=== PATIENT | female | born 1990 | race Hispanic/Latino ===

== ENCOUNTER 2020-04-01 15:12 | Outpatient (CLI) | payer MEDICAID, SELFPAY ==
--- NOTE | ~2020-04-01 | US_ITS ---
EXAMINATION: US OB <= 14 weeks fetus DATE: 04/01/2020 16:00 INDICATION: Gestational dating. TECHNIQUE: Real-time transabdominal and transvaginal obstetric ultrasound. FINDINGS: No prior studies for comparison. The uterus measures 11 x 6 x 6.7 cm. There is an intrauterine gestational sac, with pole identi fied. The crown rump length measures .55 cm, which correlates with a estimated gestational age of 6 weeks 2 days. heart tones are identified measuring 125. Right ovary not visualized. Left ovar y is normal measuring 3.4 x 1.9 x 3.5 cm. IMPRESSION: 1. SL IUP with an EGA of 6 weeks, 2 days (EDC by current ultrasound of 11/23/2020). Reviewed, dictated and finalized at location A. IMPRESSION: 1. SL IUP with an EGA of 6 weeks, 2 days (EDC by current ultrasound of ).
== END 2020-04-01 15:13 | disposition home or self-care (01) ==
LOC: ANHIMG 15:22
PROVIDERS: PCP Obstetrics & Gynecology; Visit Provider Obstetrics & Gynecology
DX: Z34.91 Encounter for supervision of normal pregnancy, unspecified, first trimester (principal); Z3A.01 Less than 8 weeks gestation of pregnancy
CPT/HCPCS: 76801

== ENCOUNTER 2020-05-14 13:38 | Outpatient (CLI) | payer MEDICAID, SELFPAY ==
--- NOTE | ~2020-05-14 | US_ITS ---
EXAMINATION: US OB <= 14 weeks fetus DATE: 05/14/2020 14:38 INDICATION: Routine care. TECHNIQUE: Real-time ultrasound of the pelvis was performed. COMPARISON: Ultrasound 04/01/2020 FINDINGS: There is a single living fetus in variable presentation. The placenta is anterior. heart rate is 170 beats per minute (bpm). The amniotic fluid volume is subjectively normal. The following biometric data were obtained: Biparietal diameter (BPD): 2.2 cm; head circumference (HC): 8.4 cm; abdominal circumference (AC): 7.2 cm; femur length (FL): 1.2 cm. These measurements are concordant. Estimated weight is 79 g +/- 12 g, which correlates with 94th percentile when 11/22/20 is used a s estimated date of delivery. As single measurements, these parameters are each equal to the following estimated gestational ages w ith ranges of +/- 2 standard deviations: BPD: 13 weeks 5 days (12 weeks 3 days - 14 weeks 6 days). HC: 13 weeks 5 days (12 weeks 4 days - 14 weeks 6 days). AC: 13 weeks 5 days (12 weeks 0 days - 15 weeks 3 days). FL: 13 weeks 3 days (12 weeks 1 days - 14 weeks 6 days). estimated gestational age based solely on measurements from this exam is 13 weeks 5 days +/- 1 weeks 0 days. IMPRESSION: 1. Single living fetus in variable presentation. 2. Large for gestational age. Estimated weight is 79 g +/- 12 g, which correlates with 94th per centile when 11/22/20 is used as estimated date of delivery. Note that the estimated date of delivery from the crown-rump length from the first ultrasound was 11/23/2020. Reviewed, dictated and finalized at location B. GE WORKER IMPRESSION: 1. Single living fetus in variable presentation. 2. Large for gestational age. Estimated weight is 79 g +/- 12 g, which co rrelates with 94th percentile when 11/22/20 is used as estimated date of deliver y. Note that the estimated date of delivery from the crown-rump length from the first ultrasound was 11/23/2020.
== END 2020-05-14 13:39 | disposition home or self-care (01) ==
LOC: ANHIMG 14:02
PROVIDERS: Visit Provider Obstetrics & Gynecology
DX: Z34.91 Encounter for supervision of normal pregnancy, unspecified, first trimester (principal); Z3A.13 13 weeks gestation of pregnancy
CPT/HCPCS: 76801

== ENCOUNTER 2020-07-19 11:02 | Outpatient (CLI) | payer OTHER, SELFPAY ==
--- NOTE | ~2020-07-19 | US_ITS ---
EXAMINATION: US OB /maternal detail DATE: 07/19/2020 12:23 INDICATION: Assess anatomy during second trimester of TECHNIQUE: Multiple obstetric sonographic images performed. COMPARISON: 05/14/2020 and 04/01/2020 FINDINGS: There is a single living fetus in vertex presentation. The placenta is anterior and not low-lying wi th caudal margin 6.0 cm from the internal cervical os. Amniotic fluid volume is subjectively normal. heart rate of 141 beats per minute. The following anatomy was identified as normal: Ventricles, choroid plexus, falx and cava septum pellucidum Cerebellum and cisterna magna Nuchal fold Upper lip Spine Diaphragm Stomach Kidneys Bladder 3 vessel cord and cord insertion Bilateral upper and lower extremities including hands and feet Chamber heart view (the outflow tract views are nondiagnostic) The following biometric data were obtained: BPD: 5.5 cm -> 22 weeks 5 days Head circumference: 20.8 cm -> 22 weeks 6 days Abdominal circumference: 18.1 cm -> 23 weeks 0 days Femur length: 4.1 cm -> 23 weeks 2 days These measurements are concordant. Head circumference to abdominal circumference ratio: 1.15 (normal range 1.05-1.21). Estimated weight: 558 g (+/-) 84 g. or 1 lbs. 4 oz. (+/-) 3 oz. IMPRESSION: 1. Single living fetus with vertex presentation with heart rate of 141 bpm. 2. Estimated weight is 91st percentile by Hadlock criteria when 11/22/2020 is used as the LIBBY. Please correlate with clinical information or earlier ultrasounds for most accurate LIBBY. 3. Normal four-chamber heart view but with nondiagnostic outlet views. Otherwise normal survey. Reviewed, dictated and finalized at location A. DIPPER IMPRESSION: 1. Single living fetus with vertex presentation with heart rate of 141 b pm. 2. Estimated weight is 91st percentile by Hadlock criteria when 1 is used as the LIBBY. Please correlate with clinical information or earlier ult rasounds for most accurate LIBBY. 3. Normal four-chamber heart view but with nondiagnostic outlet views. Otherwis e normal survey.
== END 2020-07-19 11:03 | disposition home or self-care (01) ==
PROVIDERS: PCP Obstetrics & Gynecology; Visit Provider Obstetrics & Gynecology
DX: Z34.90 Encounter for supervision of normal pregnancy, unspecified, unspecified trimester (principal); Z3A.00 Weeks of gestation of pregnancy not specified
CPT/HCPCS: 76805

== ENCOUNTER 2020-08-30 09:02 | Outpatient (CLI) | payer OTHER, SELFPAY ==
--- NOTE | ~2020-08-30 | US_ITS ---
EXAMINATION: US OB follow up DATE: 08/30/2020 09:28 INDICATION: growth assessment during third trimester TECHNIQUE: Real-time ultrasound of the pelvis was performed. The interpreting radiologist was not pre sent for the study. COMPARISON: 07/19/2020 FINDINGS: There is a single living fetus in vertex presentation. The placenta is anterior. card iac activity and movement are noted. heart rate is 152 beats per minute (bpm). The amniot ic fluid index is 21.2 cm which is normal (normal range: 9.4 cm to 22.8 cm) . The following biometric data were obtained: Biparietal diameter (BPD): 7.5 cm; head circumference (HC): 2635 cm; abdominal circumference (AC): 28 .6 cm; femur length (FL): 5.4 cm. The head circumference to abdominal circumference ratio is greater than than two standard deviations below the mean. These measurements are otherwise concordant. [place] [address] g +/- 8 g, which correlates with the >97th percentile when 11/22/2020 is used as estimated date of delivery. As single measurements, these parameters are each equal to the following estimated gestational ages w ith ranges of +/- 2 standard deviations: BPD: 30 weeks 3 days +/- 3 weeks 1 days. HC: 28 weeks 6 days +/- 2 weeks 0 days. AC: 32 weeks 4 days +/- 3 weeks 0 days. FL: 28 weeks 5 days +/- 2 weeks 1 days. estimated gestational age based solely on measurements from this exam is 30 weeks 1 days +/- 2 weeks 1 days. IMPRESSION: 1. Single living fetus in vertex presentation. 2. Normal amniotic fluid index. 3[place] [address] g +/- 8 g, which correlates with the >97th percentile when 11/23/19 21 is used as estimated date of delivery. 4. Head circumference to abdominal circumference ratio greater than two standard deviations below the mean. Reviewed, dictated and finalized at location A. IMPRESSION: 1. Single living fetus in vertex presentation. 2. Normal amniotic fluid index. 3. [place] [address] g +/- 8 g, which correlates with the >97th p ercentile when 11/22/2020 is used as estimated date of delivery. 4. Head circumference to abdominal circumference ratio greater than two standar d deviations below the mean.
== END 2020-08-30 09:03 | disposition home or self-care (01) ==
LOC: ANHIMG 09:03
PROVIDERS: Visit Provider Obstetrics & Gynecology
DX: Z34.93 Encounter for supervision of normal pregnancy, unspecified, third trimester (principal); Z3A.30 30 weeks gestation of pregnancy
CPT/HCPCS: 76816

== ENCOUNTER 2020-10-06 15:16 | Outpatient (CLI) | payer OTHER, SELFPAY ==
--- NOTE | ~2020-10-06 | US_ITS ---
EXAMINATION: US OB follow up DATE: 10/06/2020 16:12 INDICATION: Large for gestational age. TECHNIQUE: Real-time ultrasound of the pelvis was performed. COMPARISON: Ultrasound 08/30/2020, 04/01/2020 FINDINGS: There is a single living fetus in vertex presentation. The placenta is anterior. heart rate is 167 beats per minute (bpm). The amniotic fluid index is 14.1 cm, which is normal. The cervical lengt h is normal on transvaginal images. The following biometric data were obtained: Biparietal diameter (BPD): 8.9 cm; head circumference (HC): 30.0 cm; abdominal circumference (AC): 34 .7 cm; femur length (FL): 6.8 cm. These measurements are discordant with high cephalic index, low HC/AC, low FL/AC, and high FL/HC. Estimated weight is 3036 g +/- 455 g, which correlates with >97th percentile when 11/22/20 is us ed as estimated date of delivery. As single measurements, these parameters are each equal to the following estimated gestational ages: BPD: 35 weeks 5 days. HC: 33 weeks 2 days. AC: 38 weeks 4 days. FL: 34 weeks 6 days. estimated gestational age based solely on measurements from this exam is 35 weeks 4 days +/- 2 weeks 3 days. IMPRESSION: 1. Single living fetus in vertex presentation. 2. Large for gestational age. Estimated weight is 3036 g +/- 455 g, which correlates with >97t h percentile when 11/22/20 is used as estimated date of delivery. Note that the estimated date of deli very from the first ultrasound on 04/01/20 was 11/23/20. 3. Discordant biometrics with high cephalic index, low HC/AC, low FL/AC, and high FL/HC. Reviewed, dictated and finalized at location A. IMPRESSION: 1. Single living fetus in vertex presentation. 2. Large for gestational age. Estimated weight is 3036 g +/- 455 g, whic h correlates with >97th percentile when 11/22/20 is used as estimated date of de livery. Note that the estimated date of delivery from the first ultrasound on was 11/23/20. 3. Discordant biometrics with high cephalic index, low HC/AC, low FL/AC, and hi gh FL/HC.
== END 2020-10-06 15:17 | disposition home or self-care (01) ==
LOC: ANHIMG 15:20
PROVIDERS: Visit Provider Obstetrics & Gynecology
DX: Z36.86 Encounter for antenatal screening for cervical length (principal); Z3A.35 35 weeks gestation of pregnancy
CPT/HCPCS: 76816

== ENCOUNTER 2020-11-21 06:06 | Inpatient (IN) | payer OTHER, SELFPAY ==
--- NOTE | 2020-11-10 14:10 | PC.NURSE ---
VERIFIED WITH OR SCHEDULE AND PATIENT --C/S ON 11/21/20 AT 0900 PATIENT GIVEN REQUISITION FOR LAB DRAW ON 11/20/20
[2020-11-21] VITALS (34 sets, daily range): BP systolic 98–145; BP diastolic 52–91; PULSE 63–97; RESP 12–18; TEMP 36.2–36.8; O2SAT 96–100; BMI 38.1
[2020-11-21 06:57] LABS: Basophils Percent Auto 0.6 % (0.2-1.2); Eosinophils Absolute Auto 0.1 K/mm3 (0-0.3); Eosinophils Percent Auto 1.5 % (0-4.4); Hematocrit 32.8 % (37.0-47.0); Hemoglobin 10.5 g/dL (12.0-15.0); Immature Granulocyte Percent A 1.5 % (0-0.5); Lymphocytes Percent Auto 24.8 % (18.3-44.2); Mean Corpuscular Hemoglobin 27.4 pg (26-34); Mean Corpuscular Volume 85.6 fl (80-100); Mean Platelet Volume 10.6 fl (7.4-10.4); Monocytes Absolute Auto 0.6 K/mm3 (0.1-0.6); Monocytes Percent Auto 9.2 % (2.6-8.5); Neutrophils Absolute Auto 4.3 K/mm3 (1.3-6.7); Neutrophils Percent Auto 62.4 % (45.5-73.1); Platelet Count Result 307 k/mm3 (150-375); Red Blood Count 3.83 M/mm3 (4.2-5.4); Red Cell Distribution Width 16.4 % (11.5-14.5); White Blood Count 6.9 K/mm3 (4.5-10.0)
[2020-11-21 07:48] LABS: HIV 1/2 Ab P24 Ag Result Negative (Negative)
[2020-11-21] MEDS: LACTATED RINGERS 1,000 ML 125 ML IV CONT ×3 (07:54→10:30)
[2020-11-21 08:24] LABS: Rapid Plasma Reagin Non-Reactive (NonReactive)
--- NOTE | 2020-11-21 08:29 | PM.IMHP ---
H&P: HPI History of Present Illness Date/Time: 11/21/20 08:29 30yo Eritrean-speaking female with h/o MTHFR, low progesterone, miscarriage, premature labor, delivery, hyperthyroidism and asthma who presents @ 39w5d. Scheduled for repeat Under spinal anesthesia. I explained her condition procedure and risks involved including but not limited to bleeding infection injury to bladder bowel baby pelvic vessels DVT pneumonia wound infection hemorrhage UTI and the risk of anesthesia. She understands all this accepts and agrees to proceed. Informed consent obtained Chief Complaint: term repeat Review of Systems Review of Systems: All systems reviewed & are unremarkable except as noted in HPI and below Constitutional: Constitutional: Reports no additional constitutional complaints Eyes: Eyes: Reports no additional eye complaints ENT: Reports system reviewed and no additional complaints, except as documented Cardiovascular: Cardiovascular: Reports no additional cardiovascular complaints Respiratory: Respiratory: Reports no additional respiratory complaints Gastrointestinal: Gastrointestinal: Reports no additional gastrointestinal complaints Genitourinary: Genitourinary: Reports no additional female genitourinary complaints Musculoskeletal: Musculoskeletal: Reports no additional musculoskeletal complaints Integumentary/Breasts: Skin/Breast: Reports system reviewed and no additional complaints, except as docu Neurologic: Reports system reviewed and no additional complaints, except as documented Psychiatric: Psychiatric: Reports no additional psychiatric complaints Endocrine: Endocrine: Reports no additional endocrine complaints Hematologic/Lymphatic: Hematologic/Lymphatic: Reports no additional hematologic/lymphatic complaints Allergic/Immunologic: Allergic/Immunologic: Reports no additional allergic/immunologic complaints [facility] Past Medical History Medical History (Updated 11/21/20 @ 08:37 by Durga Block MD) Asthma Heterozygous MTHFR mutation C677T History of miscarriage Hyperthyroidism Large for gestational age fetus Term Surgical History Surgical History Delivery by section 12/01/[id number] CesareanFull Term BirthRegional-Epidural vertical skin incision in [place] baby was born [place] History of section, low transverse 03/06/20151368 lbs.12 oz.M [facility] Family History Family History Father Diabetes mellitus Mother Diabetes mellitus Social History Social History (Updated 11/21/20 @ 08:40 by Durga Block MD) Smoking status: Never smoker Second hand tobacco smoke exposure: No Alcohol intake: never Substance use: never Living arrangements: with family Occupation/Education: unemployed Gender identity (if verbalized by the patient): Female Sexual Orientation (if Verbalized by the Patient): Straight or Heterosexual Spiritual care concerns: No Agree to blood products: Yes Meds Home Medications and Allergies Home Medications Medication Instructions Recorded Confirmed Type Alive 11/10/20 History aspirin [Aspirin Low Dose] 81 mg PO DAILY 11/10/20 11/10/20 History calcium carbonate-vitamin D3 2 tablet PO DAILY 11/10/20 11/10/20 History [calcium-vitamin D3] folic acid 2 mg PO DAILY 11/10/20 11/10/20 History progesterone micronized 200 mg PO HS 11/10/20 11/10/20 History Allergies Allergy/AdvReac Type Severity Reaction Status Date / Time No Known Allergies Allergy Verified 11/10/20 13:39 Vital Signs Vital Signs - 24 hr 11/21/20 06:45 11/21/20 06:46 Pulse Rate 79 80 Blood Pressure 116/91 H 123/82 Exam Const: General: cooperative, healthy appearing, comfortable, no ac
--- NOTE | 2020-11-21 08:33 | P.HPUP_ITS ---
History and Physical Update Update Date/Time: 11/21/20 08:33 History and Physical has been reviewed, including an updated exam of the patient. There are NO changes in the patient's condition. Risks, benefits, and alternatives have been discussed and questions answered. Patient agrees to proceed with procedure. 30yo Martiniquais-speaking female with h/o MTHFR, low progesterone, miscarriage, premature labor, delivery, hyperthyroidism and asthma who presents @ 39w5d. Scheduled for repeat Under spinal anesthesia. I explained her condition procedure and risks involved including but not limited to bleeding infection injury to bladder bowel baby pelvic vessels DVT pneumonia wound infection hemorrhage UTI and the risk of anesthesia. She understands all this accepts and agrees to proceed. Informed consent obtained
--- NOTE | 2020-11-21 08:33 | WPDOBADMIT ---
Obstetrics - Admit Note Admission Note: record reviewed. No pertinent additions to the history and/or any subsequent changes in the physical findings that are not consistent with the expected course of the were found. Additions to the history and/or subsequent changes in the physical findings follow. None. 30yo Mongolian-speaking female with h/o MTHFR, low progesterone, miscarriage, premature labor, delivery, hyperthyroidism and asthma who presents @ 39w5d. Scheduled for repeat Under spinal anesthesia. I explained her condition procedure and risks involved including but not limited to bleeding infection injury to bladder bowel baby pelvic vessels DVT pneumonia wound infection hemorrhage UTI and the risk of anesthesia. She understands all this accepts and agrees to proceed. Informed consent obtained
--- NOTE | 2020-11-21 08:58 | WPDANESEPPF ---
Anes - Initial Pre Proc Eval Procedure: Operation Date: 11/21/20 09:00 Proposed Procedures p Repeat Section - Durga Block MD Date/Time: 11/21/20 08:58 Surgeon: Durga Block MD Pre Op Diagnosis: C/S Patient Data Age: 30 Gender: F Height: 1.5 m Weight: 85.7 kg Last Vital Signs Pulse 80 11/21/20 06:46 BP 123/82 11/21/20 06:46 Allergies Allergy/AdvReac Type Severity Reaction Status Date / Time No Known Allergies Allergy Verified 11/10/20 13:39 Home Medications Medication Instructions Recorded Confirmed Type Alive 11/10/20 History aspirin [Aspirin Low Dose] 81 mg PO DAILY 11/10/20 11/10/20 History calcium carbonate-vitamin D3 2 tablet PO DAILY 11/10/20 11/10/20 History [calcium-vitamin D3] folic acid 2 mg PO DAILY 11/10/20 11/10/20 History progesterone micronized 200 mg PO HS 11/10/20 11/10/20 History Laboratory Tests 11/21/20 11/21/20 11/21/20 06:42 06:42 06:42 WBC 6.9 K/mm3 K/mm3 (4.5-10.0) RBC 3.83 M/mm3 L M/mm3 (4.2-5.4) Hgb 10.5 g/dL L g/dL (12.0-15.0) Hct 32.8 % L % (37.0-47.0) MCV 85.6 fl fl (80-100) MCH 27.4 pg pg (26-34) MCHC 32.0 g/dl g/dl (32-36) RDW 16.4 % H % (11.5-14.5) Plt Count 307 k/mm3 k/mm3 (150-375) MPV 10.6 fl H fl (7.4-10.4) Immature Gran % (Auto) 1.5 % H % (0-0.5) Neut % (Auto) 62.4 % % (45.5-73.1) Lymph % (Auto) 24.8 % % (18.3-44.2) [place] % (Auto) 9.2 % H % (2.6-8.5) Eos % (Auto) 1.5 % % (0-4.4) Baso % (Auto) 0.6 % % (0.2-1.2) Lymph # (Auto) 1.70 K/mm3 K/mm3 (0.9-3.2) [place] # (Auto) 0.6 K/mm3 K/mm3 (0.1-0.6) Eos # (Auto) 0.1 K/mm3 K/mm3 (0-0.3) Baso # (Auto) 0.0 K/mm3 K/mm3 (0.0-0.1) Abs Immat Gran (auto) 0.10 K/mm3 H K/mm3 (0.00-0.031) Absolute Neuts (auto) 4.3 K/mm3 K/mm3 (1.3-6.7) Absolute Nucleated RBC 0.0 K/mm3 K/mm3 (0.0-0.012) Nucleated RBC % 0.0 % % (0.0-0.2) RPR Non-reactive (NonReactive) HIV 1&2 Ab/P24 Ag 4thGn Blood Type O Positive Antibody Screen Negative 11/21/20 06:42 WBC RBC Hgb Hct MCV MCH MCHC RDW Plt Count MPV Immature Gran % (Auto) Neut % (Auto) Lymph % (Auto) [place] % (Auto) Eos % (Auto) Baso % (Auto) Lymph # (Auto) [place] # (Auto) Eos # (Auto) Baso # (Auto) Abs Immat Gran (auto) Absolute Neuts (auto) Absolute Nucleated RBC Nucleated RBC % RPR HIV 1&2 Ab/P24 Ag 4thGn Negative (Negative) Blood Type Antibody Screen Patient hx anesthesia problems: none Family hx anesthesia problems: none [facility] Past Medical History Medical History (Updated 11/21/20 @ 08:37 by Durga Block MD) Asthma Heterozygous MTHFR mutation C677T History of miscarriage Hyperthyroidism Large for gestational age fetus Term Surgical History Surgical History Delivery by section 12/01/[id number] CesareanFull Term BirthRegional-Epidural vertical skin incision in [place] baby was born in [place] History of section, low transverse 03/06/20151368 lbs.12 oz.M [facility] Family History Family History Father Diabetes mellitus Mother Diabetes mellitus Social History Social History (Updated 11/21/20 @ 08:40 by Durga Block MD) Smoking status: Never smoker Second hand tobacco smoke exposure: No Alcohol intake: never Substance use: never Living arrangements: with family Occupation/Educatio
[2020-11-21] MEDS: ceFAZolin 2 GM/D5W 50 ML 2 GM/50 ML BAG IVPB (09:13)
--- NOTE | 2020-11-21 10:17 | PM.OBPRVD ---
OB - Delivery Note Procedure Delivery date: 11/21/20 Procedure: Procedures Operation Date: 11/21/20 09:00 < repeat low-transverse section with delivery of viable male and placenta Removal of old abdominal scar and omental adhesiolysis > events: Previous Intrapartal events: None Induction method: none Delivery monitor: external FHT and external uterine Route of delivery: (Repeat low-transverse) Episiotomy description: None Laceration Description: None Specimen: Yes Quantitative Blood Loss (ml): 310 Anesthesia type: Spinal Disposition: floor Complications: None Narrative: see full procedure note Baby Date of : 11/21/20 Time of : 09:38 Weeks of gestation at delivery: 40 Infant gender: Male Weight (pounds): 11 Weight (ounces): 7 presentation: vertex position: Left Occiput Anterior Placenta delivery description: Manual Removal and Normal Configuration cord vessel description: 3 Vessels score one minute: 8 score five minutes: 9 Narrative: to nursery stable condition
--- NOTE | 2020-11-21 10:20 | W.PM.PROC2 ---
Procedure Note - Detailed Date of Procedure 11/21/20 Pre-op Diagnosis Term Previous C/S desires repeat section Large for gestational age fetus Heterozygous MTHFR Post-op Diagnosis same (Term , delivered viable male and placenta Previous C/S desires repeat section Large for gestational age fetus Heterozygous MTHFR) Procedure Performed Repeat low-transverse section with delivery of viable male and placenta Removal of old abdominal scar Omental adhesiolysis Surgeon Durga Block MD Splitting Machine Tender players assistant x2 Anesthesia spinal (Duramorph) Indications Previous x2 desires repeat section Findings Viable male delivered at 9:38 a.m. on 11/21/2020 spontaneous respirations and cry no observed abnormalities on the exam scores 8 and 9 at 1 and 5 minutes weighing 5190 g which is 11 lb 7 oz taken to the nursery stable condition Placenta intact three-vessel cord Uterus tubes ovaries normal Omental to lower abdominal wall adhesions Antibiotic prophylaxis Ancef 2 g VTE prevention SCDs Procedure performed in OR room 2. Counts correct Complications none Specimens pathology placenta cord blood gases and cord blood Description of Procedure The patient was taken to the operating room after informed consent was obtained and placed in the sitting position and a spinal anesthetic was administered using language line for interpretation of Romanian. Patient was placed in the supine position and a Soto catheter was inserted. Her abdomen was then prepped. Her abdomen was then draped. I traced out the old scar for excision and tested her abdomen for to confirm adequate anesthesia. A time-out was performed. An elliptical incision was then made around the old scar with sharp blade in the old scar was excised using electrocautery. The fascia was 100 with electrocautery and extended bilateral undermined both superior and inferior the rectus muscles were then the midline with with electrocautery and the vesicouterine peritoneal reflection was incised transversely a transverse incision was made to the uterus and extended bilaterally digitally membranes were ruptured and light meconium-stained amniotic fluid was noted. The vertex was then delivered via the abdominal incision with fundal pressure. The nose and throat were bulb suction the cord was clamped and cut and the infant was handed to the nursery nurse in attendance scores given 8 9 time of delivery 9:38 a.m. weight 11 lb 7 oz normal transition taken to the nursery stable condition. Cord gases obtained cord blood obtained and the placenta was then delivered intact with a three-vessel cord. 10 units Pitocin given into the myometrium was followed by intravenous Pitocin and the uterus contracted well blood clots membranes removed from the intrauterine cavity with the uterus externalized. The uterine incision was then repaired with 0 Vicryl in a running interlocking fashion the cyst in 2 layers the 2nd being an imbricating stitch hemostasis was excellent. Irrigation was performed and the blood clots removed from the cul-de-sac both lateral margins. The sponge needle instrument counts correct the omentum was lysed off of the lower anterior abdominal wall segment and freed and replaced back up into the upper abdomen the a peritoneum and rectus muscles were then reapproximated in the midline with 0 Vicryl suture running fashion with the sponge needle and instrument counts being correct. The fascia was then closed with 2. Quill the S RS system bilateral with the Luther's fascia reapproximated with 3 0 plain interrupted fashion. The skin was then closed with the absorbable stapled device INSORB. The Dermabond was used on the skin and then a Mepilex dressing was placed over the incision patient was taken to the recovery room stable condition counts correct complications none specimens were se
[2020-11-21] MEDS: KETOROLAC 30 MG/ML VIAL (*BKC) IV PUSH ×2 (11:00→18:29)
[2020-11-21] MEDS: OXYTOCIN 30 UNITS/NS 500 ML 30 UNITS/500 ML BAG 125 UNITS IV CONT (11:27)
--- NOTE | 2020-11-21 12:36 | OBPPTRN ---
Patient transferred to post room # 287 via stretcher. Support person present. Oriented to room and care routines via phone translation avery per pt's request instead of using [employer] good humor vendor. Patient verbalizes understanding.
--- NOTE | 2020-11-21 15:10 | PC.NURSE ---
200 cc vaginal bleeding noted and weighed on peripad when pericare performed. Fundus firm at u/u. Minimal vag bleeding noted with fundal massage.
[2020-11-21] MEDS: DOCUSATE SODIUM 100 MG CAPSULE PO (15:55)
[2020-11-21] MEDS: DEXTROSE 5%/0.45% SOD CHL 1,000 ML 125 ML IV CONT (15:55)
[2020-11-21] MEDS: HYDROcodone/acetaminophen (*CRX) 10-325 MG TABLET 1 TAB PO (22:39)
[2020-11-22] MEDS: KETOROLAC 30 MG/ML VIAL (*BKC) IV PUSH (00:52)
[2020-11-22 03:30] VITALS: BP 108/66; PULSE 87; RESP 18; TEMP 37.1; O2SAT 99
[2020-11-22 05:17] LABS: Basophils Percent Auto 0.3 % (0.2-1.2); Eosinophils Percent Auto 0.4 % (0-4.4); Hematocrit 27.4 % (37.0-47.0); Hemoglobin 8.7 g/dL (12.0-15.0); Immature Granulocyte Absolute 0.09 K/mm3 (0.00-0.031); Immature Granulocyte Percent A 0.8 % (0-0.5); Lymphocytes Absolute Auto 1.02 K/mm3 (0.9-3.2); Mean Corpuscular HGB Conc 31.8 g/dl (32-36); Mean Corpuscular Hemoglobin 27.8 pg (26-34); Mean Corpuscular Volume 87.5 fl (80-100); Mean Platelet Volume 11.1 fl (7.4-10.4); Monocytes Percent Auto 9.2 % (2.6-8.5); Neutrophils Absolute Auto 9.1 K/mm3 (1.3-6.7); Neutrophils Percent Auto 80.3 % (45.5-73.1); Platelet Count Result 228 k/mm3 (150-375); Red Blood Count 3.13 M/mm3 (4.2-5.4); Red Cell Distribution Width 16.6 % (11.5-14.5); White Blood Count 11.3 K/mm3 (4.5-10.0)
[2020-11-22] MEDS: IBUPROFEN 600 MG TABLET PO ×3 (05:48→20:57)
[2020-11-22] MEDS: HYDROcodone/acetaminophen (*CRX) 10-325 MG TABLET 1 TAB PO ×5 (05:48→23:48)
[2020-11-22 08:00] VITALS: BP 113/73; PULSE 91; RESP 16; TEMP 37.2; O2SAT 96
[2020-11-22] MEDS: POLYSACCHARIDE IRON COMPLEX 150 MG CAPSULE PO ×2 (10:26→17:46)
[2020-11-22] MEDS: MULTIVIT/MIN/PREN/FOL AC/IRON TABLET 1 TAB PO (10:26)
[2020-11-22] MEDS: DOCUSATE SODIUM 100 MG CAPSULE PO ×2 (10:26→17:46)
--- NOTE | 2020-11-22 13:29 | WPDANLDPN2 ---
Anes-Prog Note L&D Date/Time: 11/22/20 13:29 Comfortable throughout: section Neuraxial method: spinal Epidural/Spinal procedure site: clean & non-tender Neuro status: Neuro function grossly intact. Cardiovascular status: normal Respiratory status: normal Airway patency: baseline Mental status: baseline Post-Op hydration status: normal Vital Signs: Last Vital Signs Temp 37.2 C 11/22/20 08:00 Pulse 91 11/22/20 08:00 Resp 16 11/22/20 08:00 BP 113/73 11/22/20 08:00 Pulse Ox 96 11/22/20 08:00 Pain score (VAS): 0 I/O: Intake & Output 11/21/20 11/22/20 11/22/20 23:59 07:59 15:59 Intake Total 960 900 Output Total 1200 1250 Balance -240 -350 Post-procedural complaints: none Patient feedback: Patient satisfied with anesthetic care.
--- NOTE | 2020-11-22 13:31 | WPDANLDNPN2 ---
Anes-Prog Note L&D-Neuraxial Date/Time: 11/22/20 13:31 Neuraxial medications: intrathecal PF morphine Opiod-related complaints: none Patient feedback: Patient satisfied with post-operative pain management.
--- NOTE | 2020-11-22 16:30 | PC.NURSE ---
Patient declines use of the [employer] translation line and prefers to use her own translation avery.
[2020-11-22 19:25] VITALS: BP 133/90; PULSE 87; RESP 16; TEMP 36.8; O2SAT 100
--- NOTE | 2020-11-22 19:25 | PC.NURSE ---
Patient declines use of the [employer] translation line and prefers to use her own translation avery.
[2020-11-23] MEDS: HYDROcodone/acetaminophen (*CRX) 10-325 MG TABLET 1 TAB PO ×4 (02:57→14:04)
[2020-11-23] MEDS: IBUPROFEN 600 MG TABLET PO ×2 (02:57→09:59)
[2020-11-23] MEDS: DOCUSATE SODIUM 100 MG CAPSULE PO (09:58)
[2020-11-23] MEDS: POLYSACCHARIDE IRON COMPLEX 150 MG CAPSULE PO (09:58)
[2020-11-23] MEDS: MULTIVIT/MIN/PREN/FOL AC/IRON TABLET 1 TAB PO (09:58)
[2020-11-23 09:59] VITALS: BP 125/82; PULSE 73; RESP 16; TEMP 36.3; O2SAT 99
--- NOTE | 2020-11-23 10:30 | PM.OBDSVD ---
DS: Admitting Diagnosis Admitting Diagnosis Admitting Diagnosis: Term Previous C/S desires repeat section Large for gestational age fetus Heterozygous MTHFR DS: Discharge Diagnosis Discharge Diagnosis (1) Term delivered: Code(s): O80 - Encounter for full-term uncomplicated delivery Status: Acute (2) History of section, low transverse: Code(s): Z98.891 - History of uterine scar from previous surgery Status: Acute (3) Large for gestational age fetus: Status: Acute (4) Heterozygous MTHFR mutation [id number]: Code(s): Z15.89 - Genetic susceptibility to other disease Status: Acute OB - DS: Summary Hospital Course Time spent discussing smoking cessation with patient: 3 to 10 minutes OB Procedures : Ultrasound OB Procedures Intrapartum: (Repeat) low cervical, transverse OB Procedures: : None Peripartum Data Infant Delivery Method: Section (Repeat low-transverse) Laceration Description: None Episiotomy description: None Procedures: Procedures Operation Date: 11/21/20 09:00 < repeat low-transverse section with delivery of viable male infant and placenta Removal of old abdominal scar and omental adhesiolysis > complications: none Doug[place] 1: Gender: Male Disposition of : home Status at Discharge Cognitive/behavioral status at discharge: Normal Functional status at discharge: independent ambulation Overall status at discharge: patient is back to baseline Time Spent with Patient Time attestation: Total time spent providing and/or coordinating discharge services: Time spent: Less than 30 minutes Exam Const: General: cooperative, healthy appearing, comfortable, no acute distress, well developed, alert, awake and Physically active Nutritional Appearance: average body habitus Orientation/consciousness: patient oriented x3 Limitations: no limitations HENMT: Head: normal to inspection Eyes: General: appearance normal, both eyes and all related structures Neck: Neck: normal visual inspection Chest: Chest palpation & inspection: normal inspection of the chest Resp: Effort & Inspection: normal respiratory effort Auscultation: clear to auscultation bilaterally Cardio: Rate: regular rate Rhythm: regular rhythm GI: Inspection: normal to inspection and incision (Dressing dry and intact) GI Palp: Yes Soft to palpation Percussion: Yes normal to percussion Auscultation: normal bowel sounds : External Female Exam: normal external appearance Bimanual exam- vagina & uterus: non-tender Back/Spine/Pelvis: Back: no CVA tenderness Skin: General skin exam: normal color Neuro: General: patient oriented x3, gait normal, tone normal, moves all extremities, no meningeal signs and no focal motor deficits Extrem: General: normal to inspection and full ROM Psych: Appearance: grossly normal Mental Status: mental status grossly normal Speech and movement: Normal speech and movement present Affect: normal affect Attitude: cooperative Thought process: Normal thought process present Thought content: Yes Normal thought content present Insight: Good insight present (Psych) Judgement: Good judgement present (Psych) DS: Data Data Completed and Pending Labs on day of discharge: Labs from last 24 hours 11/21/20 11/21/20 11/21/20 06:42 06:42 06:42 WBC RBC Hgb Hct MCV MCH MCHC RDW Plt Count MPV Immature Gran % (Auto) Neut % (Auto) Lymph % (Auto) [place] % (Auto) Eos % (Auto) Baso % (Auto) Lymph # (Auto) [place] # (Auto) Eos # (Auto) Baso # (Auto) Abs Immat Gran (auto) Absolute Neuts (auto) Absolute Nucleated RBC Nucleated RBC % RPR Non-reactive HIV 1&2 Ab/P24 Ag 4thGn Negative Blood Type O Positive Antibody Screen Negative 11/21/20 06:42 WBC 6.9 RBC 3.83 L Hgb 10.5 L Hct
--- NOTE | 2020-11-23 11:01 | PC.NURSE ---
Addendum entered by Marbella Mg RN 11/23/20 17:24: also used for D/C teaching. Original Note: [id number] Declines to use the [employer]. Prefers to use translation [employer]very on her phone. this was used for morning assessments.
[2020-11-26 10:00] VITALS: BP 128/86; PULSE 88; RESP 20; TEMP 37.2; O2SAT 100
== END 2020-11-23 15:40 | disposition home or self-care (01) | DRG 540 ==
LOC: ANHLDR 10:38 → ANHOB2 12:42
PROVIDERS: Admitting Provider Obstetrics & Gynecology; Visit Provider Obstetrics & Gynecology
PROC: 10D00Z1 Extraction of Products of Conception, Low, Open Approach (ICD-10-PCS; CPT 59514; principal; 2020-11-21 09:00)
DX: O34.211 Maternal care for low transverse scar from previous cesarean delivery (principal); Z37.0 Single live birth; Z3A.39 39 weeks gestation of pregnancy; O77.0 Labor and delivery complicated by meconium in amniotic fluid; O99.284 Endocrine, nutritional and metabolic diseases complicating childbirth; E05.90 Thyrotoxicosis, unspecified without thyrotoxic crisis or storm; O99.52 Diseases of the respiratory system complicating childbirth; J45.909 Unspecified asthma, uncomplicated; E72.12 Methylenetetrahydrofolate reductase deficiency; O99.214 Obesity complicating childbirth; E66.9 Obesity, unspecified; O36.63X0 Maternal care for excessive fetal growth, third trimester, not applicable or unspecified
CPT/HCPCS: 36415; 85025; 86592; 86703; 86850; 86900; 86901; 88307; A9270; G0432; J0131; J0690; J1885; J2274; J2370; J2405; J2590; J7120